=== PATIENT | female | born 1975 | race Two or more races ===

== ENCOUNTER 2022-10-02 16:15 | Emergency (ER) | payer SELFPAY ==
[~2022-10-02] VITALS: Ht 172.7 cm; Wt 61.0 kg
[2022-10-02] MEDS ORDERED: HALOPERIDOL LACTATE 5MG/ML VIAL IM STA (16:45)
[2022-10-02 17:10] LABS: BASOPHILS % 0.8 % (0.0-2.0); EOSINOPHILS % 0.9 % (0.0-5.0); HEMATOCRIT. 36.6 % (36.0-48.0); HEMOGLOBIN. 12.4 g/dL (12.0-16.0); LYMPHOCYTES % 41.5 % (20.0-50.0); MEAN CORPUSCULAR HEMOGLOBIN 29.9 pg (28.0-32.0); MEAN CORPUSCULAR VOLUME 88.1 fL (81.0-99.0); MEAN PLATELET VOLUME 7.9 fl (7.4-10.4); MONOCYTES % 12.1 % (2.0-8.0); NEUTROPHILS % 44.7 % (40.0-76.0); PLATELET 187 x1000/uL (130-400); RED BLOOD CELL COUNT 4.16 mill/uL (4.2-5.4)
[2022-10-02 17:15] LABS: CHLORIDE 102 mEq/L (98-107)
[2022-10-02 17:20] LABS: HCG SCREEN NEGATIVE
[2022-10-02 17:30] LABS: CREATINE KINASE 419 IU/L (26-192); ETHANOL BLOOD < 10 mg/dL
[2022-10-03 03:43] VITALS: BP 106/58
== END 2022-10-03 03:48 | disposition home or self-care (01) ==
LOC: ER 16:15
DX: R45.6 Violent behavior (principal); F15.10 Other stimulant abuse, uncomplicated; Z20.822 Contact with and (suspected) exposure to COVID-19
CPT/HCPCS: 36415; 80053; 80307; 80320; 80329; 82550; 84443; 84703; 85025; 87426; 96372; 99285; C9803; J1630; G0480